=== PATIENT | male | born 1950 | race Caucasian/White ===

== ENCOUNTER 2022-11-28 12:02 | Emergency (ER) | payer OTHER ==
[~2022-11-28] VITALS: Ht 170.2 cm; Wt 80.9 kg
[2022-11-28] MEDS ORDERED: IBUPROFEN 600 MG TABLET PO ONE (12:15)
[2022-11-28] MEDS ORDERED: LISI-894 PO (12:23)
[2022-11-28] MEDS ORDERED: METF-1211 PO (12:23)
[2022-11-28 12:39] VITALS: BP 170/87
== END 2022-11-28 14:39 | disposition home or self-care (01) ==
LOC: EMS 12:08
DX: S00.03XA Contusion of scalp, initial encounter (principal); S13.4XXA Sprain of ligaments of cervical spine, initial encounter; S39.012A Strain of muscle, fascia and tendon of lower back, initial encounter; M19.012 Primary osteoarthritis, left shoulder; M19.011 Primary osteoarthritis, right shoulder; E11.9 Type 2 diabetes mellitus without complications; E78.00 Pure hypercholesterolemia, unspecified; I10 Essential (primary) hypertension; W19.XXXA Unspecified fall, initial encounter; Y93.89 Activity, other specified; Y92.89 Other specified places as the place of occurrence of the external cause; Y99.8 Other external cause status
CPT/HCPCS: 70450; 72070; 72100; 72125; 99284